=== PATIENT | female | born 2005 | race Caucasian/White ===

== ENCOUNTER → 2024-06-01 13:24 | Outpatient (BNVA) | payer OTHER, SELFPAY | PROVIDERS: Visit Provider Registered Nurse | DX: Z77.21 Contact with and (suspected) exposure to potentially hazardous body fluids (principal) | CPT/HCPCS: 84450; 84460; 84702; 85025; 86803; 87389; 99204 ==

== ENCOUNTER → 2024-06-17 13:22 | Outpatient (BNVA) | payer OTHER, SELFPAY | PROVIDERS: Visit Provider Physician Assistant Medical | DX: Z77.21 Contact with and (suspected) exposure to potentially hazardous body fluids (principal); Z02.79 Encounter for issue of other medical certificate | CPT/HCPCS: 82150; 82565; 84450; 84460; 85025; 99213 ==

== ENCOUNTER → 2024-07-01 13:15 | Outpatient (BNVA) | payer OTHER, SELFPAY | PROVIDERS: Visit Provider Physician Assistant Medical | DX: Z77.21 Contact with and (suspected) exposure to potentially hazardous body fluids (principal) | CPT/HCPCS: 82150; 82565; 84450; 84460; 85025; 99213 ==

== ENCOUNTER → 2024-07-29 13:06 | Outpatient (BNVA) | payer OTHER, SELFPAY | DX: Z77.21 Contact with and (suspected) exposure to potentially hazardous body fluids (principal); Z02.79 Encounter for issue of other medical certificate | CPT/HCPCS: 84450; 84460; 87389; 99211 ==